=== PATIENT | male | born 1955 | race Caucasian/White ===

== ENCOUNTER 2020-05-19 10:48 | Outpatient (CLI) | payer BC ==
--- NOTE | 2020-05-19 11:13 | CT ---
CT BRAIN WITHOUT CONTRAST: HISTORY: Memory loss and left hand tremors FINDINGS: No evidence of acute infarct, hemorrhage, midline shift or abnormal extra-axial fluid collections is seen. The ventricular size is appropriate and the basilar cisterns are patent. The bony calvarium is intact. The visualized paranasal sinuses and mastoid air cells are well aerated. IMPRESSION: No CT evidence of acute intracranial process.
== END 2020-05-19 10:49 | disposition home or self-care (01) ==
LOC: SCSCT 10:48
PROVIDERS: ATTEND Family Medicine
DX: I48.91 Unspecified atrial fibrillation (principal); R25.1 Tremor, unspecified; R41.3 Other amnesia
CPT/HCPCS: 70450

== ENCOUNTER 2022-10-16 15:18 | Outpatient (CLI) | payer MEDICARE, BC | END 2022-10-16 15:19 | disposition home or self-care (01) | LOC: BICRAD 15:18 | PROVIDERS: ATTEND Family Medicine | DX: M25.552 Pain in left hip (principal); M47.816 Spondylosis without myelopathy or radiculopathy, lumbar region; M16.0 Bilateral primary osteoarthritis of hip; Z98.890 Other specified postprocedural states; Z96.642 Presence of left artificial hip joint; Z87.828 Personal history of other (healed) physical injury and trauma | CPT/HCPCS: 72170 ==

== ENCOUNTER 2023-01-19 10:13 | Inpatient (IN) | payer MEDICARE, BC ==
[2023-01-19 11:01] LABS: ALT (SGPT) Less than 7 U/L (8-55); AST (SGOT) 9 U/L (5-34); Albumin 4.2 g/dL (3.4-4.8); Alkaline Phosphatase 75 U/L (40-110); Anion Gap 16 mmol/L (10-20); BUN (Urea Nitrogen) 10 mg/dL (8.4-25.7); Calc. Creatinine Clearance 0 mL/min (70-130); Carbon Dioxide 24 mmol/L (23-31); Chloride 104 mmol/L (98-107); Estimated GFR 97; Globulin 2.6 g/dL (2.4-3.5); Glucose 109 mg/dL (80-115); Hemoglobin 7.8 g/dL (14.0-18.0); Mean Corpuscular HGB CONC 31.8 g/dL (32.0-36.0); Mean Corpuscular Hemoglobin 26.5 pg (27.0-31.0); Mean Corpuscular Volume 83.3 fl (78.0-98.0); Mean Platelet Volume 7.2 fL (7.4-10.4); Platelet Count 336 10x3/uL (130-400); Potassium 3.2 mmol/L (3.5-5.1); Protein, Total 6.8 g/dL (5.8-8.1); RBC Distribution Width 16.6 % (11.5-14.5); Red Blood Cell (RBC) Count 2.96 mill/uL (4.70-6.10); Sodium 141 mmol/L (136-145); White Blood Cell (WBC) Count 3.3 10x3/uL (4.8-10.8)
[2023-01-19 11:06] LABS: Bacteria/HPF None Seen HPF (None Seen); Bilirubin Negative (Negative); Blood, Urine Negative (Negative); Clarity Clear (Clear); Glucose, Urine (Dipstick) Normal (Negative); Ketone, Urine Negative (Negative); Leukocyte Negative Leu/uL (Negative); Nitrite Negative (Negative); Protein, Urine (Dipstick) 30 mg/dL (Neg-Trace); RBC/HPF 0-3 HPF (0-3); Specific Gravity, Urine 1.008 (1.002-1.036); Squamous Epithelial None Seen HPF (0-3); Urobilinogen Normal mg/dL (Less than 2); WBC/HPF 0-3 HPF (0-3); pH, Urine 6.5 (5.0-9.0)
[2023-01-19 11:09] LABS: INR-International Normal Ratio 1.1; Prothrombin Time 14.9 sec (12.0-14.7)
[2023-01-19 11:10] LABS: PTT 32.9 sec (22.9-36.1)
[2023-01-19 11:16] LABS: Anisocytosis SLIGHT = 6-15 cells (100X) (0-5/hpf); Eosinophils 4 % (0-10); Hypochromia SLIGHT = 6-15 cells (100X) (0-5/hpf); Lymphocytes 18 % (21-51); MDiff Complete? YES; Monocytes 14 % (0-10); Neutrophil 62 % (42-75); Ovalocytes SLIGHT = 2-5 cells (100X) (0-1/hpf); Platelet Morphology Comment Appears Adequate; Polychromasia SLIGHT = 2-3 cells (100X) (0-2/hpf); Reactive Lymphocytes 2 % (0-10); Stomatocytes SLIGHT = 2-5 cells (100X) (0-1/hpf)
[2023-01-19] MEDS ORDERED: Ondansetron ODT 4 MG TAB PO PRN ×2 (12:18→12:21)
[2023-01-19] MEDS ORDERED: Ondansetron PF 4 MG/2 ML Vial IVP PRN (12:18)
[2023-01-19] MEDS ORDERED: Acetaminophen 325 MG TAB PO PRN (12:18)
[2023-01-19] MEDS ORDERED: Lorazepam 2 MG/ML VIAL IM PRN (12:21)
[2023-01-19] MEDS ORDERED: Lorazepam 1 MG TAB PO PRN (12:21)
[2023-01-19] MEDS ORDERED: Electrolyte Replacement Protocol FS SCH (12:30)
[2023-01-19 12:48] LABS: Magnesium 1.9 mg/dL (1.6-2.6); Phosphorus 1.9 mg/dL (2.3-4.7)
[2023-01-19 13:10] VITALS: BMI 33.7
[2023-01-19] MEDS ORDERED: Potassium Chloride 20 MEQ TAB PO SCH (14:00)
[2023-01-19] MEDS ORDERED: Magnesium 2 GM/50 ML(in water) 2 GM in Premix Bag 1 BAG IVPB SCH (14:00)
[2023-01-19 15:32] LABS: Hemoglobin 7.8 g/dL (14.0-18.0)
[2023-01-19] MEDS: Thiamine HCl 200 MG/2 ML VIAL SLOW IVP SCH (15:39)
[2023-01-19] MEDS: PHOS-NAK 1 PKT PACK PO SCH ×2 (15:40→17:34)
[2023-01-19 16:40] LABS: Iron 26 ug/dL (65-175); Iron Binding Capacity, Total 315 mcg/dL (261-462)
[2023-01-19] MEDS: Lorazepam 1 MG TAB PO SCH ×2 (17:34→23:14)
[2023-01-19 18:01] LABS: Ferritin 312.11 ng/mL (22-322)
[2023-01-19 18:35] LABS: Syphilis Antibody Nonreactive (Nonreactive); Syphilis Antibody Index 0.05 S/CO (<1.00 Non-Reactive)
[2023-01-19] MEDS: Pantoprazole 40 MG VIAL IVP SCH (20:33)
[2023-01-20 02:45] LABS: SARS-CoV-2 NAA Rapid Test Not Detected (NotDetected)
[2023-01-20] MEDS: Lorazepam 1 MG TAB PO SCH ×3 (05:24→17:55)
[2023-01-20 07:23] LABS: ALT (SGPT) 8 U/L (8-55); AST (SGOT) 10 U/L (5-34); Albumin 3.5 g/dL (3.4-4.8); Alkaline Phosphatase 66 U/L (40-110); Anion Gap 11 mmol/L (10-20); BUN (Urea Nitrogen) 9 mg/dL (8.4-25.7); Calc. Creatinine Clearance 177 mL/min (70-130); Calcium 8.7 mg/dL (7.8-10.44); Carbon Dioxide 25 mmol/L (23-31); Chloride 106 mmol/L (98-107); Estimated GFR 100; Globulin 2.5 g/dL (2.4-3.5); Glucose 101 mg/dL (80-115); Potassium 3.4 mmol/L (3.5-5.1); Sodium 139 mmol/L (136-145)
[2023-01-20] MEDS: Pantoprazole 40 MG VIAL IVP SCH ×2 (08:00→20:57)
[2023-01-20 08:15] LABS: Hemoglobin 7.6 g/dL (14.0-18.0); Mean Corpuscular HGB CONC 31.5 g/dL (32.0-36.0); Mean Corpuscular Hemoglobin 26.5 pg (27.0-31.0); Mean Corpuscular Volume 84.1 fl (78.0-98.0); Mean Platelet Volume 8.1 fL (7.4-10.4); Platelet Count 275 10x3/uL (130-400); RBC Distribution Width 16.5 % (11.5-14.5); Red Blood Cell (RBC) Count 2.87 mill/uL (4.70-6.10); White Blood Cell (WBC) Count 2.7 10x3/uL (4.8-10.8)
[2023-01-20] MEDS ORDERED: Potassium Chloride 20 MEQ TAB PO SCH (08:15)
[2023-01-20 08:47] LABS: Eosinophils 3 % (0-10); Hypochromia MODERATE=16-30 cells (100X) (0-5/hpf); Lymphocytes 22 % (21-51); MDiff Complete? YES; Monocytes 10 % (0-10); Neutrophil 65 % (42-75); Platelet Morphology Comment Appears Adequate
[2023-01-20] MEDS ORDERED: PROPOFOL 200 MG/20 ML VIAL ONE (09:46)
[2023-01-20] MEDS ORDERED: Lidocaine 1% PF 5 ML VIAL ONE (09:46)
[2023-01-20] MEDS ORDERED: Promethazine HCl 25 MG/ML VIAL IM PRN (09:51)
[2023-01-20] MEDS ORDERED: Ondansetron HCl/PF 4 MG/2 ML Vial IVP PRN (09:51)
[2023-01-20] MEDS ORDERED: Iron, Sodium Ferric Gluconate 250 MG in Sodium Chloride 0.9% 250 ML 250 ML IVPB SCH (10:00)
[2023-01-20] MEDS: Folic Acid 1 MG TAB PO SCH (10:43)
[2023-01-20] MEDS: Multivit, Therapeutic 1 TAB PO SCH (10:44)
[2023-01-20] MEDS ORDERED: Lorazepam 1 MG TAB PO PRN (12:21)
[2023-01-20] MEDS ORDERED: Montelukast Sodium 10 mg Tablet PO PRN (15:28)
[2023-01-20] MEDS: Thiamine HCl 200 MG/2 ML VIAL SLOW IVP SCH (16:47)
[2023-01-20] MEDS ORDERED: GoLYTELY 4,000 ml Bottle PO SCH (17:00)
[2023-01-20] MEDS: Flecainide 50 MG TAB PO SCH (20:57)
[2023-01-20] MEDS: Carbidopa/Levodopa 25-100 mg Tablet PO SCH (20:57)
[2023-01-21] MEDS: Lorazepam 1 MG TAB PO SCH ×3 (00:03→13:10)
[2023-01-21 05:26] LABS: Anisocytosis SLIGHT = 6-15 cells (100X) (0-5/hpf); Band 2 % (5-11); Eosinophils 4 % (0-10); Hemoglobin 8.1 g/dL (14.0-18.0); Hypochromia SLIGHT = 6-15 cells (100X) (0-5/hpf); Lymphocytes 32 % (21-51); MDiff Complete? YES; Mean Corpuscular HGB CONC 31.2 g/dL (32.0-36.0); Mean Corpuscular Hemoglobin 26.3 pg (27.0-31.0); Mean Corpuscular Volume 84.1 fl (78.0-98.0); Mean Platelet Volume 7.7 fL (7.4-10.4); Monocytes 6 % (0-10); Neutrophil 56 % (42-75); Platelet Count 302 10x3/uL (130-400); Platelet Morphology Comment Appears Adequate; Polychromasia SLIGHT = 2-3 cells (100X) (0-2/hpf); RBC Distribution Width 16.9 % (11.5-14.5); Target Cells SLIGHT = 2-5 cells (100X) (0-1/hpf); White Blood Cell (WBC) Count 3.5 10x3/uL (4.8-10.8)
[2023-01-21 05:32] LABS: ALT (SGPT) Less than 7 U/L (8-55); AST (SGOT) 14 U/L (5-34); Albumin 3.8 g/dL (3.4-4.8); Alkaline Phosphatase 72 U/L (40-110); Anion Gap 11 mmol/L (10-20); BUN (Urea Nitrogen) 6 mg/dL (8.4-25.7); Bilirubin, Total 0.9 mg/dL (0.2-1.2); Calc. Creatinine Clearance 185 mL/min (70-130); Calcium 9.1 mg/dL (7.8-10.44); Carbon Dioxide 26 mmol/L (23-31); Chloride 107 mmol/L (98-107); Estimated GFR 101; Globulin 2.6 g/dL (2.4-3.5); Glucose 96 mg/dL (80-115); Protein, Total 6.4 g/dL (5.8-8.1); Sodium 140 mmol/L (136-145)
[2023-01-21] MEDS ORDERED: Atenolol 25 MG TAB PO SCH (09:00)
[2023-01-21] MEDS ORDERED: Amlodipine 10 MG TAB PO SCH (09:00)
[2023-01-21] MEDS ORDERED: Rosuvastatin 20 MG TAB PO SCH (09:00)
[2023-01-21] MEDS ORDERED: Lisinopril 20 MG TAB PO SCH (09:00)
[2023-01-21] MEDS ORDERED: PROPOFOL 200 MG/20 ML VIAL ONE (12:03)
[2023-01-21] MEDS ORDERED: Lorazepam 1 MG TAB PO PRN (12:21)
[2023-01-21] MEDS ORDERED: Promethazine HCl 25 MG/ML VIAL IM PRN (12:28)
[2023-01-21] MEDS ORDERED: Ondansetron HCl/PF 4 MG/2 ML Vial IVP PRN (12:28)
[2023-01-21] MEDS ORDERED: Iron, Sodium Ferric Gluconate 250 MG in Sodium Chloride 0.9% 250 ML 250 ML IVPB SCH (12:42)
[2023-01-21] MEDS: Folic Acid 1 MG TAB PO SCH (13:14)
[2023-01-21] MEDS: Flecainide 50 MG TAB PO SCH (13:14)
[2023-01-21] MEDS: Pantoprazole 40 MG VIAL IVP SCH (13:14)
[2023-01-21] MEDS: Multivit, Therapeutic 1 TAB PO SCH (13:14)
[2023-01-21] MEDS: Carbidopa/Levodopa 25-100 mg Tablet PO SCH (13:14)
[2023-01-21 13:15] VITALS: BP 161/76
[2023-01-21] MEDS ORDERED: Colchicine 0.6 MG TAB PO SCH (13:46)
[2023-01-21 14:00] VITALS: TEMP 98.1
[2023-01-21] MEDS: Thiamine HCl 200 MG/2 ML VIAL SLOW IVP SCH (16:18)
[2023-01-21] MEDS ORDERED: Lorazepam 0.5 MG TAB PO SCH (18:00)
[2023-01-22] MEDS ORDERED: Lorazepam 0.5 MG TAB PO PRN (12:21)
[2023-01-22] MEDS ORDERED: Thiamine 100 MG TAB PO SCH (15:00)
[2023-01-23 12:49] LABS: EliA Celiac New Method **** NEW METHOD ****; t-Transglutaminase (tTG) IgA 1.2 EliAU/mL (<7 Negative)
== END 2023-01-21 16:36 | disposition home or self-care (01) | DRG 378 ==
LOC: ERS 10:13 → T4-B 11:59 → OBSVTOIN 01-20 15:31
PROVIDERS: ADMIT Internal Medicine; ATTEND Internal Medicine
PROC: 30233N1 Transfusion of Nonautologous Red Blood Cells into Peripheral Vein, Percutaneous Approach (ICD-10-PCS; principal; 2023-01-19)
PROC: 0DB48ZX Excision of Esophagogastric Junction, Via Natural or Artificial Opening Endoscopic, Diagnostic (ICD-10-PCS; 2023-01-20)
PROC: 0DJD8ZZ Inspection of Lower Intestinal Tract, Via Natural or Artificial Opening Endoscopic (ICD-10-PCS; 2023-01-21)
DX: K29.71 Gastritis, unspecified, with bleeding (principal); D62 Acute posthemorrhagic anemia; I48.20 Chronic atrial fibrillation, unspecified; K25.4 Chronic or unspecified gastric ulcer with hemorrhage; Z20.822 Contact with and (suspected) exposure to COVID-19; I10 Essential (primary) hypertension; G20 Parkinson's disease; E87.6 Hypokalemia; E78.5 Hyperlipidemia, unspecified; F10.10 Alcohol abuse, uncomplicated; M10.9 Gout, unspecified; Z79.01 Long term (current) use of anticoagulants; Z88.0 Allergy status to penicillin; Z98.890 Other specified postprocedural states; Z79.899 Other long term (current) drug therapy
CPT/HCPCS: 36415; 36430; 80053; 81001; 81003; 81015; 82274; 82607; 82728; 83516; 83540; 83550; 83735; 84100; 84443; 85025; 85610; 85730; 86780; 86850; 86900; 86901; 88305; 93005; 94760; 96374; 96375; 96376; C9113; G0378; J2704; J2916; J3411; J3475; J7050; P9016; U0002; U0003; U0005

== ENCOUNTER 2023-08-23 07:51 | Day surgery (SDC) | payer MEDICARE, BC ==
[2023-08-15 09:01] VITALS: BMI 33.5
[2023-08-15 09:19] LABS: Hematocrit 43.7 % (38.8-50.0); Hemoglobin 13.6 g/dL (13.5-17.5); Mean Corpuscular HGB CONC 31.1 g/dL (32.0-36.0); Mean Corpuscular Hemoglobin 23.7 pg (27.0-33.0); Mean Corpuscular Volume 76.1 fl (81.2-95.1); Platelet Count 285 10x3/uL (150-450); RBC Distribution Width 18.4 % (11.5-14.5); Red Blood Cell (RBC) Count 5.74 10x6/uL (4.32-5.72); White Blood Cell (WBC) Count 9.2 10x3/uL (3.5-10.5)
[2023-08-15 09:44] LABS: Prothrombin Time 10.5 sec (9.5-12.1)
[2023-08-15 09:48] LABS: Anion Gap 15 mmol/L (10-20); BUN (Urea Nitrogen) 13 mg/dL (8.4-25.7); Calc. Creatinine Clearance 162 mL/min (70-130); Calcium 9.1 mg/dL (7.8-10.44); Carbon Dioxide 22 mmol/L (23-31); Chloride 107 mmol/L (98-107); Estimated GFR 98; Glucose 129 mg/dL (80-115); Potassium 3.7 mmol/L (3.5-5.1); Sodium 140 mmol/L (136-145)
[2023-08-23] MEDS ORDERED: PROPOFOL 200 MG/20 ML VIAL ONE (10:01)
[2023-08-23] MEDS ORDERED: Lidocaine 1% PF 5 ML VIAL ONE (10:01)
== END 2023-08-23 11:40 | disposition home or self-care (01) ==
LOC: SDC 07:51
PROVIDERS: ATTEND Internal Medicine Cardiovascular Disease
PROC: B246ZZ4 Ultrasonography of Right and Left Heart, Transesophageal (ICD-10-PCS; principal; 2023-08-23)
DX: I48.0 Paroxysmal atrial fibrillation (principal); I49.3 Ventricular premature depolarization; K92.2 Gastrointestinal hemorrhage, unspecified; I10 Essential (primary) hypertension; D64.9 Anemia, unspecified; G20.A1 Parkinson's disease without dyskinesia, without mention of fluctuations; E78.2 Mixed hyperlipidemia; E11.9 Type 2 diabetes mellitus without complications; R53.83 Other fatigue; Z96.653 Presence of artificial knee joint, bilateral; Z95.818 Presence of other cardiac implants and grafts; Z96.642 Presence of left artificial hip joint; Z98.890 Other specified postprocedural states; Z79.82 Long term (current) use of aspirin; Z79.899 Other long term (current) drug therapy
CPT/HCPCS: 80048; 85027; 85610; 93312; J2704

== ENCOUNTER 2023-10-16 10:03 | Outpatient (CLI) | payer MEDICARE, BC | END 2023-10-16 10:04 | disposition home or self-care (01) | LOC: SCSRAD 10:03 | PROVIDERS: ATTEND Family Medicine | DX: R05.9 Cough, unspecified (principal); I51.7 Cardiomegaly; R09.89 Other specified symptoms and signs involving the circulatory and respiratory systems | CPT/HCPCS: 71046 ==

== ENCOUNTER 2023-10-19 06:26 | Day surgery (SDC) | payer MEDICARE, BC ==
[2023-10-10 12:05] VITALS: BMI 34.7
[2023-10-10 12:33] LABS: #Basophils 0.1 10x3/uL (0.0-0.2); #Eosinphils 0.2 10x3/uL (0.0-0.5); #Neutrophils 6.4 10x3/uL (1.5-8.4); %Basophils 0.6 % (0.0-2.0); %Eosinophils 2.3 % (0.0-6.0); %Monocytes 9.5 % (0.0-10.0); %Neutrophils 61.1 % (40.0-75.0); Hematocrit 47.8 % (38.8-50.0); Hemoglobin 15.1 g/dL (13.5-17.5); Mean Corpuscular HGB CONC 31.6 g/dL (32.0-36.0); Mean Corpuscular Hemoglobin 25.1 pg (27.0-33.0); Mean Corpuscular Volume 79.5 fl (81.2-95.1); Mean Platelet Volume 9.8 fl (7.4-10.4); Platelet Count 283 10x3/uL (150-450); RBC Distribution Width 17.2 % (11.5-14.5); Red Blood Cell (RBC) Count 6.01 10x6/uL (4.32-5.72); White Blood Cell (WBC) Count 10.5 10x3/uL (3.5-10.5)
[2023-10-10 12:47] LABS: Prothrombin Time 10.5 sec (9.5-12.1)
[2023-10-10 13:01] LABS: Anion Gap 16 mmol/L (10-20); BUN (Urea Nitrogen) 19 mg/dL (8.4-25.7); Calc. Creatinine Clearance 154 mL/min (70-130); Calcium 9.8 mg/dL (7.8-10.44); Carbon Dioxide 24 mmol/L (23-31); Chloride 107 mmol/L (98-107); Estimated GFR 95; Glucose 89 mg/dL (80-115); Potassium 4.3 mmol/L (3.5-5.1); Sodium 143 mmol/L (136-145)
[2023-10-19] MEDS ORDERED: Lidocaine 1% (PF) 30 ML VIAL ONE (06:52)
[2023-10-19] MEDS ORDERED: Heparin 10,000 UNITS/ 10 ML VIAL ONE (06:52)
[2023-10-19] MEDS ORDERED: Glycopyrrolate 0.2 MG/ML 5 ML SYRINGE ONE (08:19)
[2023-10-19] MEDS ORDERED: Lidocaine 1% PF 5 ML VIAL ONE (08:19)
[2023-10-19] MEDS ORDERED: Ondansetron PF 4 MG/2 ML Vial ONE (08:19)
[2023-10-19] MEDS ORDERED: Dexamethasone 20 MG/5 ML VIAL ONE (08:19)
[2023-10-19] MEDS ORDERED: Succinylcholine 200 MG/10 ml SYRINGE FS ONE (08:19)
[2023-10-19] MEDS ORDERED: Rocuronium Bromide 10 MG/ML (10ML VIAL) ONE (08:19)
[2023-10-19] MEDS ORDERED: PROPOFOL 200 MG/20 ML VIAL ONE (08:19)
[2023-10-19] MEDS ORDERED: NEOSTIGMINE 3 MG/3 ML SYR 3 MG/3 ML SYRINGE ONE (08:19)
== END 2023-10-19 12:50 | disposition home or self-care (01) ==
LOC: SDC 06:26
PROVIDERS: ATTEND Internal Medicine Cardiovascular Disease
PROC: 02583ZZ Destruction of Conduction Mechanism, Percutaneous Approach (ICD-10-PCS; principal; 2023-10-19)
DX: I48.3 Typical atrial flutter (principal); I48.0 Paroxysmal atrial fibrillation; I10 Essential (primary) hypertension; E11.9 Type 2 diabetes mellitus without complications; E78.2 Mixed hyperlipidemia; G20.A1 Parkinson's disease without dyskinesia, without mention of fluctuations; K92.2 Gastrointestinal hemorrhage, unspecified; F10.90 Alcohol use, unspecified, uncomplicated; G89.29 Other chronic pain; Z88.0 Allergy status to penicillin; Z92.89 Personal history of other medical treatment; Z95.818 Presence of other cardiac implants and grafts; Z96.653 Presence of artificial knee joint, bilateral; Z96.642 Presence of left artificial hip joint; Z79.82 Long term (current) use of aspirin; Z79.899 Other long term (current) drug therapy
CPT/HCPCS: 80048; 85025; 85610; 93005; 93312; 93653; C1731; C1760; C1894 ×3; C2630; C1759; J1100; J1644; J2001; J2405; J2704

== ENCOUNTER 2024-01-24 07:37 | Day surgery (SDC) | payer MEDICARE ==
[2024-01-23 08:31] VITALS: BMI 33.5
[2024-01-24] MEDS ORDERED: Oxymetazoline HCl 0.05% (30 ML BOT) ONE ×2 (09:14→10:22)
[2024-01-24] MEDS ORDERED: fentaNYL PF 100 MCG/2 ML SYRINGE ONE ×2 (09:58→11:20)
[2024-01-24] MEDS ORDERED: PROPOFOL 20 ML ONE (09:58)
[2024-01-24] MEDS ORDERED: Lidocaine 1% (PF) 30 ML VIAL ONE (10:22)
[2024-01-24] MEDS ORDERED: Bacitracin Zinc Ointment 30 gm TUBE ONE (10:22)
[2024-01-24] MEDS ORDERED: EPINEPHrine 1 MG/ML VIAL ONE (10:22)
[2024-01-24] MEDS ORDERED: Ondansetron PF 4 MG/2 ML Vial ONE (10:45)
[2024-01-24] MEDS ORDERED: Dexamethasone 20 MG/5 ML VIAL ONE (10:45)
[2024-01-24] MEDS ORDERED: Rocuronium Bromide 10 MG/ML (10ML VIAL) ONE (10:45)
[2024-01-24] MEDS ORDERED: NEOSTIGMINE 3 MG/3 ML SYR 3 MG/3 ML SYRINGE ONE (10:45)
[2024-01-24] MEDS ORDERED: Glycopyrrolate 0.2 MG/ML 5 ML SYRINGE ONE (10:45)
[2024-01-24] MEDS ORDERED: SUCCINYLCHOLINE/SOD CL,ISO/PF 200 MG/10 ML SYRINGE FS ONE (10:45)
[2024-01-24] MEDS ORDERED: ePHEDrine Sulfate 50 MG/10 ML VIAL ONE (11:08)
[2024-01-24] MEDS ORDERED: Ketorolac Tromethamine 30 MG (1 mL) VIAL ONE (11:20)
[2024-01-24] MEDS ORDERED: fentaNYL 50 mcg/mL 1 mL Vial ONE (12:12)
== END 2024-01-24 14:30 | disposition home or self-care (01) ==
LOC: SDC 07:37
PROVIDERS: ATTEND Specialist
PROC: 09TL8ZZ Resection of Nasal Turbinate, Via Natural or Artificial Opening Endoscopic (ICD-10-PCS; principal; 2024-01-24)
PROC: 09TV8ZZ Resection of Left Ethmoid Sinus, Via Natural or Artificial Opening Endoscopic (ICD-10-PCS; 2024-01-24)
PROC: 09TQ8ZZ Resection of Right Maxillary Sinus, Via Natural or Artificial Opening Endoscopic (ICD-10-PCS; 2024-01-24)
PROC: 09TR8ZZ Resection of Left Maxillary Sinus, Via Natural or Artificial Opening Endoscopic (ICD-10-PCS; 2024-01-24)
PROC: 09TS8ZZ Resection of Right Frontal Sinus, Via Natural or Artificial Opening Endoscopic (ICD-10-PCS; 2024-01-24)
PROC: 09TT8ZZ Resection of Left Frontal Sinus, Via Natural or Artificial Opening Endoscopic (ICD-10-PCS; 2024-01-24)
PROC: 09TU8ZZ Resection of Right Ethmoid Sinus, Via Natural or Artificial Opening Endoscopic (ICD-10-PCS; 2024-01-24)
DX: J34.3 Hypertrophy of nasal turbinates (principal); J32.4 Chronic pansinusitis; S02.2XXA Fracture of nasal bones, initial encounter for closed fracture; J34.2 Deviated nasal septum; E78.00 Pure hypercholesterolemia, unspecified; I10 Essential (primary) hypertension; M19.90 Unspecified osteoarthritis, unspecified site; Z79.899 Other long term (current) drug therapy; Z88.0 Allergy status to penicillin; Z79.82 Long term (current) use of aspirin; X58.XXXA Exposure to other specified factors, initial encounter
CPT/HCPCS: 21320; 30140; 30520; 31253; 31256; 61782; J0171; J3010; J1100; J1885; J2001; J2405; J2704

== ENCOUNTER 2025-08-01 09:31 | Emergency (ER) | payer MEDICARE ==
[2025-08-01] MEDS ORDERED: Metoprolol Tartrate 5 MG (5 mL) VIAL ONE (09:46)
[2025-08-01 09:55] LABS: #Basophils Less than 0.03 10x3/uL (0.0-0.2); #Eosinophils 0.20 10x3/uL (0.0-0.7); #Monocytes 0.53 10x3/uL (0.11-0.59); #Neutrophils 2.38 10x3/uL (1.40-6.50); %Basophils 0.4 % (0.0-1.0); %Eosinophils 4.4 % (0.0-10.0); %Lymphocytes 30.7 % (21.0-51.0); %Monocytes 11.7 % (0.0-10.0); %Neutrophils 52.6 % (42.0-75.0); Hematocrit 42.2 % (42.0-52.0); Hemoglobin 12.6 g/dL (14.0-18.0); Mean Corpuscular Hemoglobin 24.0 pg (27.0-31.0); Mean Corpuscular Volume 80.2 fL (78.0-98.0); Platelet Count 234 10x3/uL (130-400); Red Blood Cell (RBC) Count 5.26 mill/uL (4.70-6.10); White Blood Cell (WBC) Count 4.53 10x3/uL (4.8-10.8)
[2025-08-01 10:09] LABS: INR-International Normal Ratio 0.9; Prothrombin Time 12.5 sec (12.0-14.7)
[2025-08-01 10:10] LABS: PTT 35.7 sec (22.9-36.1)
[2025-08-01 10:13] LABS: ALT (SGPT) Less than 7 U/L (Less than 45); AST (SGOT) 20 U/L (11-34); Albumin 4.0 g/dL (3.1-4.5); Alkaline Phosphatase 70 U/L (40-110); Anion Gap 21 mmol/L (10-20); BUN (Urea Nitrogen) 15 mg/dL (8.4-25.7); Bilirubin, Total 0.5 mg/dL (0.3-1.2); Calc. Creatinine Clearance 0 mL/min (70-130); Calcium 9.3 mg/dL (7.8-10.44); Carbon Dioxide 24 mmol/L (23-31); Chloride 103 mmol/L (98-107); Globulin 3.2 g/dL (2.4-3.5); Glucose 117 mg/dL (80-115); Magnesium 1.7 mg/dL (1.6-2.6); Potassium 3.5 mmol/L (3.5-5.1); Sodium 144 mmol/L (136-145)
[2025-08-01] MEDS ORDERED: Iopamidol-370 76% 500 ML MDV (1 ML CHARGE) ONE (13:20)
== END 2025-08-01 12:33 | disposition home or self-care (01) ==
LOC: ERS 09:31
DX: I48.91 Unspecified atrial fibrillation (principal); I10 Essential (primary) hypertension; Z79.899 Other long term (current) drug therapy; Z79.82 Long term (current) use of aspirin
CPT/HCPCS: 71045; 71275; 80053; 83735; 83880; 84443; 84484; 85025; 85610; 85730; 93005; Q9967